=== PATIENT | female | born 1940 | race Caucasian/White ===

== ENCOUNTER 2017-04-11 20:32 | Emergency (ER) | payer OTHER, MEDICARE ==
[~2017-04-11] VITALS: Ht 160 cm; Wt 71.3 kg
[2017-04-11] MEDS ORDERED: NORCO 5/3251 TABLET PO (22:11)
[2017-04-11 22:46] VITALS: BP 195/77
== END 2017-04-11 22:46 | disposition home or self-care (01) ==
LOC: RME 20:32 → EME 20:32 → RME 22:46
DX: M76.9 Unspecified enthesopathy, lower limb, excluding foot (principal); E11.9 Type 2 diabetes mellitus without complications; Z79.4 Long term (current) use of insulin
CPT/HCPCS: 73564; 99281; 99283

== ENCOUNTER → 2017-07-07 | Outpatient (CLI) | payer MEDICARE ==
[~2017-07-07] MED LIST: HUMALOG100 UNIT/1 SC; LANTUS 10100 UNITS/ SC; NORCO 5/3251 TABLET PO; VITAMIN D2000 UNI1 PO
== END | disposition home or self-care (01) ==
LOC: CDC 14:31
DX: Z01.810 Encounter for preprocedural cardiovascular examination (principal); C50.412 Malignant neoplasm of upper-outer quadrant of left female breast; I51.7 Cardiomegaly; R94.31 Abnormal electrocardiogram [ECG] [EKG]
CPT/HCPCS: 93000

== ENCOUNTER 2017-08-03 07:00 | Day surgery (SDC) | payer OTHER, MEDICARE ==
[~2017-08-03] VITALS: Ht 160 cm; Wt 70.0 kg
[2017-08-03 07:40] VITALS: BP 178/77
[2017-08-03] MEDS ORDERED: DILAUDID2 MG PO (12:41)
[2017-08-03 17:02] VITALS: BP 181/87
[2017-08-03 18:15] VITALS: BP 177/82
[2017-08-03 19:40] VITALS: BP 143/65
== END 2017-08-03 20:05 | disposition home or self-care (01) ==
LOC: SDC 07:00 → NUC 07:00 → SDC 10:30
PROVIDERS: Surgery
DX: C50.412 Malignant neoplasm of upper-outer quadrant of left female breast (principal); Z17.0 Estrogen receptor positive status [ER+]; I10 Essential (primary) hypertension; E11.65 Type 2 diabetes mellitus with hyperglycemia; Z79.4 Long term (current) use of insulin; E66.9 Obesity, unspecified; M85.80 Other specified disorders of bone density and structure, unspecified site; I73.9 Peripheral vascular disease, unspecified; Z82.49 Family history of ischemic heart disease and other diseases of the circulatory system; Z82.3 Family history of stroke; Z83.3 Family history of diabetes mellitus; Z88.1 Allergy status to other antibiotic agents; Z88.5 Allergy status to narcotic agent; Z88.8 Allergy status to other drugs, medicaments and biological substances
CPT/HCPCS: 78195; 78999; 82948; 87641; 88305; 88307; A9541; J0131; J1100; J1170; J2250; J2405; J3010; J3370; S0020